=== PATIENT | male | born 1980 | race Caucasian/White ===

== ENCOUNTER 2018-04-16 14:11 | Emergency (ER) | payer OTHER ==
[~2018-04-16] VITALS: Ht 175.3 cm; Wt 66.0 kg
[~2018-04-16 14:11] MED LIST: FLO0.4C PO; HYDR-4383 PO; KETO10TA2 PO
[2018-04-16 14:27] VITALS: BP 132/78
[2018-04-16 14:47] LABS: BASOPHILS % (AUTO) 0.4 % (0-1); EOSINOPHILS # (AUTO) 0.2 X10'3 (0-0.9); EOSINOPHILS % (AUTO) 2.4 % (0-6); HEMATOCRIT 47.6 % (42.0-52.0); HEMOGLOBIN 15.8 g/dl (14.0-17.9); LYMPHOCYTES # (AUTO) 1.9 X10'3 (1.1-4.8); LYMPHOCYTES % (AUTO) 19.1 % (21-51); MEAN CORPUSCULAR HEMOGLOBIN 31.1 PG (27.0-31.0); MEAN CORPUSCULAR HGB CONC 33.2 % (33.0-36.5); MEAN CORPUSCULAR VOLUME 93.8 FL (78-98); MEAN PLATELET VOLUME 7.7 FL (7.4-10.4); MONOCYTES # (AUTO) 0.8 X10'3 (0-0.9); MONOCYTES % (AUTO) 8.4 % (2-12); NEUTROPHILS # (AUTO) 6.9 X10'3 (1.8-7.7); NEUTROPHILS % (AUTO) 69.7 % (42-75); PLATELET COUNT 324 X10'3 (140-440); RED BLOOD COUNT 5.08 X10'6 (4.70-6.10); RED CELL DISTRIBUTION WIDTH 14.9 % (11.5-14.5); WHITE BLOOD COUNT 9.9 X10'3 (4.5-11.0)
[2018-04-16 14:58] LABS: INR 1.1 INR; PROTHROMBIN TIME 10.8 SECONDS (9.0-12.0)
[2018-04-16 15:01] LABS: ALANINE AMINOTRANSFERASE 26 U/L (12-78); ALBUMIN 4.5 G/DL (3.4-5.0); ALBUMIN/GLOBULIN RATIO 1.3 (1.1-1.5); ALKALINE PHOSPHATASE 92 IU/L (46-116); ANION GAP 8 (8-16); ASPARTATE AMINO TRANSFERASE 10 U/L (10-37); BILIRUBIN,TOTAL 0.7 MG/DL (0.1-1.0); BLOOD UREA NITROGEN 16 MG/DL (7-18); BUN/CREATININE RATIO 13.8 (5.4-32.0); CHLORIDE 98 MMOL/L (99-107); CREATININE 1.16 MG/DL (0.60-1.10); GLUCOSE 109 MG/DL (70-104); POTASSIUM 3.9 MMOL/L (3.5-5.1); SODIUM 135 MMOL/L (135-145); TOTAL CARBON DIOXIDE 29.2 MMOL/L (24-32); TOTAL PROTEIN 8.1 G/DL (6.4-8.2); eGFR 70 ML/MIN
== END 2018-04-16 15:45 | disposition home or self-care (01) ==
LOC: ER 14:12
DX: R11.2 Nausea with vomiting, unspecified (principal); F12.10 Cannabis abuse, uncomplicated
CPT/HCPCS: 36415; 80053; 85025; 85610; 99284

== ENCOUNTER 2019-06-26 21:09 | Emergency (ER) | payer OTHER ==
[~2019-06-26] VITALS: Ht 175.3 cm; Wt 70.4 kg
[~2019-06-26 21:09] MED LIST changes: -FLO0.4C PO
--- NOTE | 2019-06-26 21:16 | NUR ---
Patient has no complaint and no obvious wounds.
[2019-06-26 21:57] VITALS: BP 135/89
== END 2019-06-26 21:58 ==
LOC: ER 21:10
DX: Z04.1 Encounter for examination and observation following transport accident (principal); F12.90 Cannabis use, unspecified, uncomplicated; Z79.899 Other long term (current) drug therapy; V87.7XXA Person injured in collision between other specified motor vehicles (traffic), initial encounter; Y93.89 Activity, other specified; Y92.488 Other paved roadways as the place of occurrence of the external cause; Y99.8 Other external cause status
CPT/HCPCS: 99283